=== PATIENT | female | born 1950 | race Caucasian/White ===

== ENCOUNTER 2023-04-15 10:36 | Outpatient (CLI) | payer MEDICARE, BC | END 2023-04-15 10:37 | disposition home or self-care (01) | LOC: CSHCT 10:36 | PROVIDERS: ATTEND Surgery | DX: M51.26 Other intervertebral disc displacement, lumbar region (principal); Z98.890 Other specified postprocedural states; M43.16 Spondylolisthesis, lumbar region | CPT/HCPCS: 72131 ==

== ENCOUNTER 2023-07-08 14:02 | Outpatient (CLI) | payer MEDICARE, BC | END 2023-07-08 14:03 | disposition home or self-care (01) | LOC: CSHRAD 14:02 | PROVIDERS: ATTEND Surgery | DX: M48.062 Spinal stenosis, lumbar region with neurogenic claudication (principal); Z98.890 Other specified postprocedural states; M47.816 Spondylosis without myelopathy or radiculopathy, lumbar region | CPT/HCPCS: 72100 ==

== ENCOUNTER 2023-09-03 12:17 | Outpatient (CLI) | payer MEDICARE, BC | END 2023-09-03 12:18 | disposition home or self-care (01) | LOC: CSHCT 12:17 | PROVIDERS: ATTEND Surgery | DX: M48.02 Spinal stenosis, cervical region (principal); M47.812 Spondylosis without myelopathy or radiculopathy, cervical region; I77.1 Stricture of artery | CPT/HCPCS: 70498; 82565 ==